=== PATIENT | male | born 1955 | race Caucasian/White ===

== ENCOUNTER 2018-04-04 04:17 | Emergency (ER) | payer OTHER ==
[~2018-04-04] VITALS: Ht 160 cm; Wt 70.3 kg
[2018-04-04 04:30] VITALS: Ht 160 cm; Wt 70.3 kg
[2018-04-04 05:25] LABS: BASOPHIL % 0.6 % (0-2); PLATELET COUNT 301 x10^3mcL (130-400); RED CELL DISTRIBUTION WIDTH 12.7 % (11.5-14.5)
[2018-04-04 05:36] LABS: CALCIUM 8.9 mg/dL (8.5-10.1); CARBON DIOXIDE 25.9 mmol/L (21-32); CHLORIDE SERUM 103 mmol/L (98-107); CREATININE SERUM 0.9 mg/dL (0.7-1.3); GFR1 > 60 mL/min; GLUCOSE SERUM 254 mg/dL (74-106); POTASSIUM SERUM 3.9 mmol/L (3.5-5.1); SODIUM SERUM 136 mmol/L (136-145)
[2018-04-04 11:54] VITALS: BP 147/87
== END 2018-04-04 11:54 | disposition home or self-care (01) ==
LOC: ED 04:17
PROVIDERS: Emergency Medicine
DX: I10 Essential (primary) hypertension (principal); R51 Headache
CPT/HCPCS: 36415